=== PATIENT | female | born 1935 | race Caucasian/White ===

== ENCOUNTER 2023-02-16 10:10 | Emergency (ER) | payer MEDICAID, MEDICARE | END 2023-02-16 14:47 | disposition home or self-care (01) | LOC: JP.ED 10:10 | DX: S52.501A Unspecified fracture of the lower end of right radius, initial encounter for closed fracture (principal); I12.9 Hypertensive chronic kidney disease with stage 1 through stage 4 chronic kidney disease, or unspecified chronic kidney disease; E11.22 Type 2 diabetes mellitus with diabetic chronic kidney disease; N18.9 Chronic kidney disease, unspecified; E11.42 Type 2 diabetes mellitus with diabetic polyneuropathy; Z79.4 Long term (current) use of insulin; Z91.09 Other allergy status, other than to drugs and biological substances; Z79.899 Other long term (current) drug therapy; Z87.891 Personal history of nicotine dependence; W19.XXXA Unspecified fall, initial encounter | CPT/HCPCS: 29125; 73110-26-RT; 73110-RT; 99283 ==